=== PATIENT | female | born 1965 | race Caucasian/White ===

== ENCOUNTER 2021-02-01 12:30 | Emergency (ER) | payer MEDICAID ==
[~2021-02-01] VITALS: Ht 157.5 cm; Wt 64.0 kg
[2021-02-01] MEDS ORDERED: TOPUD PO (12:44)
[2021-02-01] MEDS ORDERED: TETRACAINE 0.5% OPHTH DROPS 4ML BOTHEYE ONE (16:30)
[2021-02-01] MEDS ORDERED: FLUORESCEIN SODIUM 1MG/STRIP BOTHEYE ONE (16:30)
[2021-02-01] MEDS ORDERED: ACETAMINOPHEN 325MG TABLET PO ONE (16:30)
[2021-02-01 16:35] VITALS: BP 117/78
[2021-02-01] MEDS ORDERED: SULF5DRO EACHEYE (18:24)
[2021-02-01] MEDS ORDERED: IBUP-2029 MT (18:24)
== END 2021-02-01 18:34 | disposition home or self-care (01) ==
LOC: ER 12:30
DX: S09.8XXA Other specified injuries of head, initial encounter (principal); S05.00XA Injury of conjunctiva and corneal abrasion without foreign body, unspecified eye, initial encounter; Y08.89XA Assault by other specified means, initial encounter; Y93.9 Activity, unspecified; Y92.9 Unspecified place or not applicable
CPT/HCPCS: 70486; 99284